=== PATIENT | female | born 1960 | race Caucasian/White ===

== ENCOUNTER 2020-12-11 01:39 | Emergency (ER) | payer BC ==
--- NOTE | 2020-12-11 02:36 | EDM.PDOC ---
ED HPI GENERAL MEDICAL PROBLEM - General Chief Complaint: Cardiovascular Problem Stated Complaint: HIGH BP Time Seen by Provider: 12/11/20 01:49 Source of Information: Reports: Patient History Limitations: Reports: No Limitations - History of Present Illness INITIAL COMMENTS - FREE TEXT/NARRATIVE: Mrs. Al is a very pleasant 60-year-old woman who now presents the ED regarding a concern about her blood pressure. She states that she saw her PCP yesterday, 12/10/2020, and that chlorthalidone 25 mg daily was added to her usual irbesartan 300 mg daily and metoprolol succinate 100 mg daily, as her blood pressure was not adequately controlled on those two. She states that she took her first dose of the chlorthalidone yesterday afternoon. She intends her next dose to be later this morning, then QAM after that. The patient states that she ordinarily checks her blood pressure once a day, and that it was 162/90 yesterday morning. She states that she has been experiencing a headache with nausea since yesterday, which did not improve after she took the chlorthalidone. She presumes that her headache and nausea are due to elevated blood pressure. She did not check her blood pressure prior to coming to the ED. Here in the ED, the patient's initial BP is found to be elevated at 180/94, otherwise, she is hemodynamically stable, afebrile, saturating 97% on room air. She appears to be comfortable, and in no acute distress. Prior to yesterday, the patient denies having a recent fever, chills, sore throat, ear pain, nasal or sinus congestion, cough, dyspnea, chest pain, palpitations, nausea, vomiting, constipation, diarrhea, abdominal pain, urinary symptoms, recent weight gain or weight loss, recent bloody bowel movements or black bowel movements, recent joint aches, headaches, or rashes. The patient's PCP is JACEK Kowalski. Her Surgeon is Dr. Trina Verma, at [facility]. Headache Pain Score (Numeric/FACES): 7 - Related Data Allergies Allergy/AdvReac Type Severity Reaction Status Date / Time metronidazole [From Flagyl] Allergy Cannot Verified 12/11/20 01:53 Remember Penicillins Allergy Cannot Verified 12/11/20 01:53 Remember Sulfa (Sulfonamide Allergy Cannot Verified 12/11/20 01:53 Antibiotics) Remember Home Meds: Home Meds Chlorthalidone 25 mg PO DAILY 12/11/20 [History] Irbesartan 300 mg PO DAILY 12/11/20 [History] Metoprolol Succinate 100 mg PO DAILY 12/11/20 [History] Rosuvastatin Calcium [Crestor] 20 mg PO DAILY 12/11/20 [History] Past Medical History Cardiovascular History: Reports: High Cholesterol, Hypertension Gastrointestinal History: Reports: Colon Pol[employer] History: Reports: Spontaneous Musculoskeletal History: Reports: Osteoarthritis Endocrine/Metabolic History: Reports: Obesity/BMI 30+ - Infectious Disease History Infectious Disease History: Reports: Chicken Pox, Mumps - Past Surgical History HEENT Surgical History: Reports: Tonsillectomy GI Surgical History: Reports: Appendectomy, Colonoscopy (x 2) Female Surgical History: Reports: D&C (x 1), Hysterectomy (partial) Social & Family History - Tobacco Use Tobacco Use Status *Q: Never Tobacco User Second Hand Smoke Exposure: No - Caffeine Use Caffeine Use: Reports: None - Alcohol Use Alcohol Use History: No - Recreational Drug Use Recreational Drug Use: No - Living Situation & Occupation Living situation: Reports: , with Spouse Occupation: Unemployed ED ROS GENERAL - Review of Systems Review Of Systems: Comprehensive ROS is negative, except as noted in HPI. ED EXAM, GENERAL - Physical Exam Exam: See Below Exam Limited By: No Limitations General Appearance: Alert, WD/WN, No Apparent Distress Eye Exam: Bilateral Eye: EOMI, Normal Inspection Ears: Normal External Exam, Hearing Grossly Normal Nose: Normal Inspection Throat/Mouth: Normal Inspection, Normal Lips, Normal Voice, No Airway Compromise Head: Atraumatic, Normocephalic Neck: Normal Inspection, Full Range of Motion Respiratory/Chest: No Respiratory Distress, Lungs Clear, Normal Breath Sounds, No Accessory Muscle Use Cardiovascular: Normal Peripheral Pulses, Regular Rate, Rhythm, No Gallop, No JVD, No Murmur, No Rub Peripheral Pulses: 3+: Radial (L), Radial (R) GI/Abdominal: Normal Bowel Sounds, Soft, Non-Tender, No Organomegaly, No Distention, No Abnormal Bruit, No Mass Back Exam: Normal Inspection, Full Range of Motion, NT Extremities: Normal Inspection, Normal Range of Motion, Normal Capillary Refill Neurological: Alert, Oriented, Normal Cognition, No Motor/Sensory Deficits Psychiatric: Normal Affect Skin Exam: Warm, Dry, Intact, Normal Color, No Rash Course - Vital Signs Last Recorded V/S: Last Vital Signs Temp 36.4 C 12/11/20 01:57 Pulse 78 12/11/20 01:57 Resp 13 12/11/20 01:57 BP 180/94 H 12/11/20 01:57 Pulse Ox 97 12/11/20 01:57 - Re-Assessments/Exams Free Text/Narrative Re-Assessment/Exam: 12/11/20 02:30 As above, the patient was started on chlorthalidone just yesterday afternoon, as her losartan and metoprolol were apparently not effective at controlling her BP. She developed nausea and a headache yesterday, before she started taking the chlorthalidone, and was under the impression that they were due to her elevated BP, even though it had been only 162/90 at home. While it is elevated at 180/94 here in the ED, that is well below a level recommended for acute treatment by current guidelines, and is not the cause of her nausea and headache. I explained to the patient how to check her blood pressure and how often. I recommended that she continue to take the chlorthalidone as prescribed. I offered to give her either Tylenol and/or Zofran; she declined both. Departure - Departure Time of Disposition: 02:31 Disposition: Home, Self-Care 01 Condition: Good Clinical Impression: Hypertension, Headache, Nausea Instructions: Hypertension, Adult, Musc-mr-Byhe Referrals: Sarah Montgomery PA-C [Primary Care Provider] - Trina Verma MD [Ordering Only Provider] - Forms: ED Department Discharge Additional Instructions: You were seen in the emergency room for nausea and headache associated with an elevated blood pressure. Your blood pressure in the ER was found to be elevated at 180/94, and while elevated, it is well below what current guidelines would recommend for emergency reduction. Additionally, it is highly unlikely that your nausea or headache are due to your elevated blood pressure, rather, they may be the cause of it. We recommend that you continue to take your chlorthalidone as prescribed, in addition to your usual irbesartan and metoprolol. As discussed, we recommend that you check your blood pressure 2-3 times a week, for 2 to 3 weeks, and write the numbers down. Make sure that you check your blood pressure only under restful conditions = you are sitting quietly for at least 5, and preferably 15 minutes, that you are not sick, in pain, or feeling anxious, and that the arm that you are checking your blood pressure in is supported and at the level of your heart. Bring these numbers with you when you follow-up with Ms. Montgomery. If any other problems, please do not hesitate to return to the ER. Sepsis Event Note (ED) - Evaluation Sepsis Screening Result: No Definite Risk - Focused Exam Vital Signs: Vital Signs Temp Pulse Resp BP Pulse Ox 12/11/20 01:57 36.4 C 78 13 180/94 H 97
== END 2020-12-11 02:43 | disposition home or self-care (01) ==
LOC: JD.ED 01:39
DX: I10 Essential (primary) hypertension (principal); R11.0 Nausea; E78.00 Pure hypercholesterolemia, unspecified; E66.9 Obesity, unspecified; Z68.41 Body mass index [BMI] 40.0-44.9, adult; Z88.1 Allergy status to other antibiotic agents; Z88.0 Allergy status to penicillin; Z88.2 Allergy status to sulfonamides; Z79.899 Other long term (current) drug therapy
CPT/HCPCS: 99283